=== PATIENT | male | born 1955 | race Caucasian/White ===

== ENCOUNTER 2023-09-30 09:30 | Inpatient (IN) | payer OTHER ==
[2023-09-30 09:59] VITALS: BMI 29.5
[2023-09-30] MEDS ORDERED: ACETAMINOPHEN 325 MG TABLET (FP) PO PRN (11:49)
[2023-09-30] MEDS ORDERED: BENZOCAINE/MENTHOL (CHLORASEPTIC ) LOZENGE MM PRN (11:49)
[2023-09-30] MEDS ORDERED: POLYETHYLENE GLYCOL (HEALTHYLAX) 3350 17 GM PACKET PO PRN (11:49)
[2023-09-30] MEDS ORDERED: NICOTINE POLACRILEX 2 MG GUM BUC PRN (11:49)
[2023-09-30] MEDS ORDERED: LOPERAMIDE HCL 2 MG CAPSULE PO PRN (11:49)
[2023-09-30] MEDS ORDERED: IBUPROFEN 600 MG TABLET (FP) PO PRN (11:49)
[2023-09-30] MEDS ORDERED: IBUPROFEN 400 MG TABLET (FP) PO PRN (11:49)
[2023-09-30] MEDS ORDERED: NALOXONE HCL 0.4 MG/ML VIAL IM PRN (11:49)
[2023-09-30] MEDS ORDERED: BENZONATATE 200 MG CAPSULE PO PRN (11:49)
[2023-09-30] MEDS ORDERED: NALOXONE (NARCAN) HCL 4 MG/0.1 ML SPRAY NS PRN (11:49)
[2023-09-30] MEDS ORDERED: MAGNESIUM HYDROX 2400MG/30ML ORAL SUSPENSION 30 ML CUP PO PRN (11:49)
[2023-09-30] MEDS ORDERED: guaiFENesin 600 MG TABLET.ER (FP) PO PRN (11:49)
[2023-09-30] MEDS: BISMUTH SUBSALICYLATE 262 MG/15 ML BTL PO PRN (18:16)
[2023-09-30] MEDS ORDERED: PATIENT'S OWN MEDICATION (NON-FORMULARY) (Albuterol Sulfate [Proair Digihaler] 90 MCG Aer. IH PRN (19:37)
[2023-09-30] MEDS ORDERED: [UNRECOGNIZED DRUG - OTHER] SQ SCH (19:45)
[2023-09-30] MEDS ORDERED: DULAGLUTIDE 4.5 MG/0.5 ML SQ SCH (19:45)
[2023-09-30] MEDS ORDERED: ALBUTEROL SO4 HFA INHALER IH PRN (20:13)
[2023-09-30] MEDS: MIRTAZAPINE 15 MG TABLET (FP) PO SCH (22:31)
[2023-09-30] MEDS: APIXABAN 5 MG TABLET PO SCH (22:31)
[2023-09-30] MEDS: MELATONIN 5 MG TABLETS PO SCH (22:31)
[2023-09-30] MEDS: THIAMINE 100 MG TABLET PO SCH (22:32)
[2023-10-01] MEDS: NICOTINE 21 MG/24 HOURS TOPICAL PATCH TD SCH (09:14)
[2023-10-01] MEDS: LOSARTAN 50MG/HCTZ 12.5MG 1 TAB PO SCH (09:17)
[2023-10-01] MEDS: metoPROLOL SUCCINATE 25 MG TAB.SR.24H (FP) PO SCH (09:17)
[2023-10-01] MEDS: CHOLECALCIFEROL (VIT D3) 1,000 UNIT (25 MCG) TABLET PO SCH (09:17)
[2023-10-01] MEDS: MAG HYDROX/AL HYDROX/SIMETH 30 ML UNIT-DOSE CUP PO PRN (09:18)
[2023-10-01] MEDS: PRENATAL VITAMINS W/ FOLIC ACID TABLET (FP) PO SCH (09:18)
[2023-10-01 09:21] LABS: HEMATOCRIT 30.8 % (35.4-49); MCH 29.3 pg (25.7-33.7); MCHC 32.6 g/dl (32.0-35.9); MEAN CELL VOLUME 89.9 fl (80-96); MEAN PLT VOLUME 9.9 fl (7.5-11.1); PLATELET COUNT 175 10^3/uL (134-434); RBC 3.43 M/mm3 (4.00-5.60); RDW 15.1 % (11.9-15.9); WHITE BLOOD COUNT 5.2 K/mm3 (4.0-10.0)
[2023-10-01 09:32] LABS: CHLORIDE 115 mmol/L (98-107); POTASSIUM 4.2 mmol/L (3.5-5.1); SODIUM 144 mmol/L (136-145)
[2023-10-01 09:37] LABS: BLOOD UREA NITROGEN 64.9 mg/dL (7-18)
[2023-10-01 09:55] LABS: GLUCOSE,RANDOM 224 mg/dL (74-106)
[2023-10-01 09:56] LABS: ALBUMIN 2.7 g/dl (3.4-5.0); ANION GAP 8 mmol/L (4-13); CO2 21 mmol/L (21-32)
[2023-10-01 09:57] LABS: CALCIUM 7.8 mg/dL (8.5-10.1)
[2023-10-01 09:59] LABS: CREATININE 2.3 mg/dL (0.55-1.3); SGOT/AST 16 U/L (15-37); SGPT/ALT 19 U/L (13-61)
[2023-10-01 10:00] LABS: BILIRUBIN,TOTAL 0.3 mg/dL (0.2-1)
[2023-10-01 10:01] LABS: TOT PROT 5.5 g/dl (6.4-8.2)
[2023-10-01 10:02] LABS: ALK PHOS 130 U/L (45-117)
[2023-10-01] MEDS ORDERED: LORazepam 0.5 MG TABLET PO PRN (14:37)
[2023-10-01] MEDS: LORazepam 1 MG TABLET PO SCH (17:08)
[2023-10-01] MEDS: FERROUS GLUCONATE 324 MG TAB (FP) PO SCH (18:46)
[2023-10-02] MEDS: LORazepam 0.5 MG TABLET PO SCH (05:38)
[2023-10-02 09:09] LABS: BLOOD UREA NITROGEN 56.7 mg/dL (7-18)
[2023-10-02] MEDS: amLODIPine BESYLATE 10 MG TABLET (FP) PO ONE (13:00)
[2023-10-02 16:32] VITALS: BP 151/69; PULSE 65; RESP 17; TEMP 98
[2023-10-02] MEDS: ONDANSETRON *ODT* 4 MG TABLET SL PRN (16:47)
[2023-10-03] MEDS ORDERED: LORazepam 0.5 MG TABLET PO ONE (05:00)
== END 2023-10-02 18:45 | disposition left against medical advice (07) | DRG 894 ==
LOC: YASAS 09:30 → Y6N 12:02
PROVIDERS: ADMIT Allergy & Immunology; ATTEND Surgery
PROC: HZ2ZZZZ Detoxification Services for Substance Abuse Treatment (ICD-10-PCS; principal; 2023-09-30)
DX: F10.230 Alcohol dependence with withdrawal, uncomplicated (principal); F14.20 Cocaine dependence, uncomplicated; F12.20 Cannabis dependence, uncomplicated; F17.210 Nicotine dependence, cigarettes, uncomplicated; F43.10 Post-traumatic stress disorder, unspecified; F32.A Depression, unspecified; F41.9 Anxiety disorder, unspecified; I10 Essential (primary) hypertension; I48.91 Unspecified atrial fibrillation; E11.9 Type 2 diabetes mellitus without complications; K21.9 Gastro-esophageal reflux disease without esophagitis; G62.89 Other specified polyneuropathies; E55.9 Vitamin D deficiency, unspecified; D64.9 Anemia, unspecified; Z98.84 Bariatric surgery status; Z79.01 Long term (current) use of anticoagulants
CPT/HCPCS: 36415; 71045-TC-FY; 80053; 80305; 80307; 82565; 82962; 84520; 85027; 86780; 93005; 93010; Q0162